=== PATIENT | male | born 1940 | race Caucasian/White ===

== ENCOUNTER 2025-03-12 21:01 | Emergency (ER) | payer MEDICARE, BC, SELFPAY ==
--- NOTE | 2025-03-12 | ECG_ITS ---
Test Reason : FALL Blood Pressure : */* mmHG Vent. Rate : 84 BPM Atrial Rate : * BPM P-R Int : * ms QRS Dur : 70 ms QT Int : 356 ms P-R-T Axes : * -27 14 degrees QTcB Int : 420 ms Atrial fibrillation Inferior infarct , age undetermined Abnormal ECG No previous ECGs available Referred By: Generic ED Physician Electronically Signed By: JUSTUS MOSLEY MD
--- NOTE | ~2025-03-12 | CT_ITS ---
CLINICAL HISTORY: fall, headstrike CT cervical spine without contrast Comparison: None provided Findings: Slight convex right curvature. Straightening of cervical lordosis. Moderate lower cervical disc disease. [id number] foraminal stenoses throughout the cervical spine. Narrow AP diameter of the cervical canal averaging 11 mm. This can be associated with congenital spinal stenosis. [id number]-[id number] multilevel foraminal stenosis. Most significant at the left C2-C5 levels. No acute fractures or dislocations. No acute findings on limited view of the intracranial contents. Enlarged heterogeneous thyroid. No consolidation or effusion at the lung apices. IMPRESSION: 1. Cervical degenerative spondylosis. No acute fracture. 2. Heterogeneous goiter. Further follow-up can be based on clinical assessment. This document has been electronically signed by: Yfn Gerber MD on 03/12/2025 22:47:05
--- NOTE | ~2025-03-12 | CT_ITS ---
CLINICAL HISTORY: fall, headstrike on thinners CT head without contrast Comparison: None provided Findings: No intra-axial mass, midline shift, hydrocephalus, or acute hemorrhage. Extensive atrophy like change. The visualized paranasal sinuses and mastoid air cells are normal. The orbits are within normal limits. There is no acute fracture. IMPRESSION: 1. No acute intracranial findings. This document has been electronically signed by: Yfn Gerber MD on 03/12/2025 22:44:41
[2025-03-12 21:12] VITALS: BP 148/96; BP 165/106; PULSE 102; PULSE 82; RESP 18; TEMP 36.7; O2SAT 97; O2SAT 98; BMI 24.9
[2025-03-12 21:16] VITALS: BP 165/106; PULSE 102; RESP 18; TEMP 36.7; O2SAT 97
--- NOTE | 2025-03-12 21:23 | PC.NURSE ---
pt biba from home, had some wine tonight had a mechanical trip and fall at home. fall witnessed by , no LOC or head strike, + thinners. Hx of dementia, son in charge of medical decisions per EMS. 2/10 pain in L knee, minor abrasion 1 x 1 .
[2025-03-12 21:33] LABS: Hematocrit 42.0 % (42.0-52.0); Hemoglobin 12.9 g/dl (14.0-18.0); Imm Gran Abs Auto 0.01 X10*3/uL (0.00-0.03); Imm Gran Pct Auto 0.2 % (0.0-0.4); Mean Corpuscular HGB Conc 30.7 g/dl (31.0-36.0); Mean Corpuscular Hemoglobin 23.4 pg (27.0-33.0); Mean Corpuscular Volume 76.1 fL (80.0-98.0); NRBC Abs Auto 0.000 X10*3/uL (0.0-0.012); NRBC Pct Auto 0.0 /100WBC (0.0-0.2); Red Blood Count 5.52 X10*6/uL (4.60-5.80); SCAN SMEAR FLAG 1
[2025-03-12 21:34] LABS: Lymphocytes Absolute Auto 1.5 X10*3/uL (1.2-4.9); PLT CLUMP 1
[2025-03-12 21:39] LABS: MANUAL DIFF FLAG SCAN; PLT ABN DIST 1
[2025-03-12 21:41] LABS: INTERNATIONAL NORM RATIO 1.4 (0.9-1.1); Prothrombin Time 16.6 SEC (11.2-13.5)
[2025-03-12 21:47] LABS: Alanine Aminotransferase 24 U/L (0-40); Albumin Level 3.7 g/dL (3.5-5.0); Alkaline Phosphatase 72 U/L (39-117); Anion Gap 9 (12-20); Aspartate Amino Transferase 20 U/L (5-37); Blood Urea Nitrogen 12 mg/dL (9-16); Calcium 8.4 mg/dL (8.4-10.2); Carbon Dioxide 26 mmol/L (22-29); Chloride 108 mmol/L (96-108); Creatinine Clr Calc Pharmacy 55.4; Estimated Glomerular Filt Rate > 60; Potassium 4.4 mmol/L (3.3-5.1); Sodium 139 mmol/L (135-145); Total Protein 6.6 g/dL (6.5-8.0)
[2025-03-12 21:54] LABS: Troponin-I High Sensitivity 5.5 ng/L (<3.5-35.0)
[2025-03-12 22:00] VITALS: BP 133/83; PULSE 73; TEMP 36.5; O2SAT 97
[2025-03-12 22:21] LABS: Platelet Count 154 X10*3/uL (160-400); White Blood Count 6.5 X10*3/uL (4.8-10.8)
--- NOTE | 2025-03-12 23:30 | ED_ITS ---
HPI - Fall General Chief Complaint: Fall Stated Complaint: fall, +thinners, hx of afib & dementia Time Seen by Provider: 03/12/25 21:18 Source: patient, family, EMS, RN notes reviewed and old records reviewed Mode of arrival: EMS Limitations: other (dementia) History of Present Illness ED Provider: Dr. Ludmila Morgan HPI Narrative: 84-year-old male with a history of dementia and atrial fibrillation on Eliquis presenting after a fall that occurred at home immediately prior to arrival. Patient reports that he was drinking wine and fell onto the carpet, hitting his head on the ground. No reported LOC. Patient unable to stand up after the fall though. He has an abrasion on his left knee and pain overlying the left middle finger but otherwise denies pain. Able to freely move his legs on the stretcher without pain. He is unable to provide much history. Related Data Allergies Allergy/AdvReac Type Severity Reaction Status Date / Time No Known Allergies Allergy Verified 03/12/25 21:14 Review of Systems 2 Review of Systems: as per HPI, full review of systems performed and negative but for the above mentioned pertinent positives and negatives. [facility] Social History Social History Smoked in Last 30 Days: No Advance Directives: No Advance Directives Information Provided: Yes Physical Exam 2 Exam: Exam: GENERAL: Chronically ill-appearing, conversant, no acute distress. SKIN: Normal skin color for ethnicity, warm, dry, no rashes noted, superficial abrasion overlying the left knee cap. HEENT: Normocephalic, atraumatic, red wine staining his crown, no stridor, posterior oropharynx nonerythematous, EOMI. NECK: Soft, supple, full ROM, midline structures nontender, no step-offs, no deformities, no lymphadenopathy. CHEST: Heart regular rate and rhythm, no murmurs, symmetric chest rise and fall. PULMONARY: Clear to auscultation bilaterally, no labored breathing, no wheezes/rhales/ rhonchi. ABDOMINAL: Soft, nondistended, nontender, positive bowel sounds in all quadrants. : Deferred. MUSCULOSKELETAL: Normal tone, full range of motion, no deformities, no peripheral edema, TTP over the left third middle phalanx, no ecchymosis/deformity, good cap refill. NEURO: Alert and oriented to person, CN II through XII intact, no focal neurologic deficits. PSYCHIATRIC: Flat affect, fluid speech, appropriate demeanor. Vital Signs: Vital Signs: Last Vital Signs Temp 98.6 F 03/13/25 00:03 Pulse 83 03/13/25 00:03 Resp 18 03/13/25 00:03 BP 130/84 03/13/25 00:03 Pulse Ox 98 03/13/25 00:03 O2 Del Method Room Air 03/13/25 00:03 BMI result Body Mass Index 24.9 Medical Decision Making Medical Decision Making [facility] Narrative: Patient presents today with chief complaint of trauma after a fall. Different diagnosis on this patient includes intracranial hemorrhage, skull fracture, neck injury including fracture or spinal cord pathology. Other diagnoses considered would include chest or abdominal trauma as well as long bone fractures. Based on my physical exam, the ordered imaging modalities are indicated. The patient specifically does not show any signs of central cord syndrome as evidenced by equal strength in the upper extremities with normal two-point discrimination. Sensation is not altered. GCS is appropriate. Patient is neurovascularly intact. There are no signs of vascular emergency. No signs of shock. No respiratory distress. Patient's son who is now at bedside reports that the patient drinks non alcoholic wine. The patient does not know about it. He thinks he is drinking regular wine. That being said, he has no sign of intoxication today. He is at his baseline confusion but understands that he is in the hospital after a fall. Workup today has been reassuring with no evidence of traumatic injury. He does have a small abrasion overlying the left knee cap. Otherwise he has full active range of motion of all of his joints and is able to stand and walk with a steady gait. Tolerating oral intake. Using shared decision making, plan for discharge home to follow-up with primary care and/or specialist. Patient understands and agrees with plan for discharge. Discharged home in stable condition. Differential Diagnosis Differential Diagnoses: The differential diagnosis associated with the presentation includes (as above) Admission/Observation Consideration of admission/observation: Escalation of care including admission/observation considered Lab Data MDM Lab Attestation statement: I reviewed the patient's lab results. 03/12/25 21:28 03/12/25 21:28 Labs: Lab Results 03/12/25 Range/Units 21:28 WBC 6.5 (4.8-10.8) X10*3/uL RBC 5.52 (4.60-5.80) X10*6/uL Hgb 12.9 L (14.0-18.0) g/dl Hct 42.0 (42.0-52.0) % MCV 76.1 L (80.0-98.0) fL MCH 23.4 L (27.0-33.0) pg MCHC 30.7 L (31.0-36.0) g/dl RDW 20.9 H (11.0-16.0) % Plt Count 154 L (160-400) X10*3/uL MPV Not Reportable Immature Gran % (Auto) 0.2 (0.0-0.4) % Neut % (Auto) 52.3 (45-73) % Lymph % (Auto) 22.9 (20-40) % Gray % (Auto) 11.3 H (2-11) % Eos % (Auto) 11.8 H (0-4) % Baso % (Auto) 1.5 (0-2) % Lymph # (Auto) 1.5 (1.2-4.9) X10*3/uL Gray # (Auto) 0.7 (0.1-1.2) X10*3/uL Eos # (Auto) 0.8 H (0.0-0.4) X10*3/uL Baso # (Auto) 0.1 (0.0-0.2) X10*3/uL Abs Immat Gran (auto) 0.01 (0.00-0.03) X10*3/uL Absolute Neuts (auto) 3.4 (2.0-8.3) x10*3/uL Absolute Nucleated RBC 0.000 (0.0-0.012) X10*3/uL Nucleated RBC % (auto) 0.0 (0.0-0.2) /100WBC Smear Tech's Comments VERIFIED PT 16.6 H (11.2-13.5) SEC INR 1.4 H (0.9-1.1) Sodium 139 (135-145) mmol/L Potassium 4.4 (3.3-5.1) mmol/L Chloride 108 (96-108) mmol/L Carbon Dioxide 26 (22-29) mmol/L Anion Gap 9 L (12-20) BUN 12 (9-16) mg/dL Creatinine 1.05 (0.5-1.4) mg/dL Estim Creat Clear Calc 55.4 Estimated GFR > 60 Random Glucose 105 (60-115) mg/dL Calcium 8.4 (8.4-10.2) mg/dL Total Bilirubin 0.6 (0.0-1.0) mg/dL AST 20 (5-37) U/L ALT 24 (0-40) U/L Alkaline Phosphatase 72 (39-117) U/L Troponin I High Sens 5.5 (<3.5-35.0) ng/L Total Protein 6.6 (6.5-8.0) g/dL Albumin 3.7 (3.5-5.0) g/dL Radiology Impression Discussion of test interpretation with radiology: I have reviewed the radiologist's reading. Independent Historian Clinical information obtained from an independent historian. History obtained from or confirmed by: EMS and Other (son) External Record Review External record reviewed: Inpatient record Chronic Conditions Patient?s care impacted by: Other (dementia, Afib) Discharge Plan Discharge Clinical Impression: Fall from ground level, On continuous oral anticoagulation, Abrasion, left knee, initial encounter, Contusion of left middle finger without damage to nail Patient Disposition: Home, Self-Care Instructions: Fall Prevention for Older Adults (ED), Head Injury (ED), Abrasion (ED) Additional Instructions: Thank you for choosing [facility]'s Emergency Department for your care today. Your workup today is consistent with a concussion after a fall. Thankfully at this time there is no evidence of an acute emergent process that requires admission to the hospital or continued ED observation, and it is safe to discharge you home. A concussion is a bruise to your brain which may cause nausea, vomiting, headache, and difficulty concentrating/focusing. Similar to any other bruising, you must rest the injured area to prevent recurrent symptoms, reinjury, or other complications. In order to rest your brain, please avoid use of electronics such as cell phones, iPads, or TVs. Please avoid highly complex mental tasks/projects that require intense focus or concentration, and please avoid strenuous physical activity. Once your symptoms have resolved, you may slowly increase your activity level. If symptoms return please discontinue the activity which caused the recurrence of symptoms for 48 hours, before again attempting the same activity. You may not participate in any activities that are a high risk for recurrent head injury until you've returned to your baseline activity level without recurrence of your symptoms, plus one additional week. Take Tylenol for headache or pain as needed. Keep your finger splint clean and dry. Take it off if you need to shower or wash her hands. Reapply tape. Do not make it too tight to cut off circulation. Please follow up with your primary care physician for re-evaluation, additional management of your symptoms, return to activity clearance, and continued preventative care. If you do not have a primary care physician, please call the [facility] at [phone] to establish a new primary care physician. While waiting to establish your new primary care physician, you can call our [facility] at [phone] for non-emergency needs. Please return to the emergency department if you develop a severe or sudden change in your symptoms, a fever over 100.4 that does not improve with Tylenol or Ibuprofen, recurrent vomiting, or any other new or worsening symptoms or concerns. Interventions: ED Discharge Assessment Last Done: 03/13/25 00:03 Discharge Date/Time: 03/13/25 00:04 Print Language: Nepali
[2025-03-13 00:03] VITALS: BP 130/84; PULSE 83; RESP 18; TEMP 37; O2SAT 98
--- OUTSIDE RECORDS SUMMARY | 2025-03-13 02:38 | XMS_ITS | Clinical Summary ---
Author Organization [facility] Address [address] [place] [address] Phone Care Team Providers Care Outboard Motorboat Operator Name Role Phone Jj Burdick MD Primary Care Provider [phone] Jj Burdick MD Unavailable Allergies Active Allergy Reactions Criticality Noted Date Comments Grass Pollen 02/20/2019 Rzwrszut-Erslanxlvk-Klpk-Hc 03/19/20 Other reaction(s): urinary hesitancy Simvastatin 03/19/2020 Other reaction(s): myalgias Medications apixaban (ELIQUIS) 5 mg tabletIndication s:Longstanding persistent atrial fibrillation Take 1 tablet (5 mg total) by mouth 2 (two) times a day. 56 tablet 08/04/19 25 Active doxazosin (CARDURA) 4 MG tabletIndication s:Benign prostatic hyperplasia, unspecified whether lower urinary tract symptoms present Take 1 tablet (4 mg total) by mouth daily. 30 tablet 08/04/19 25 Active finasteride (PROSCAR) 5 mg tabletIndication s:Benign prostatic hyperplasia, unspecified whether lower urinary tract symptoms present Take 1 tablet (5 mg total) by mouth daily. 30 tablet 08/04/19 25 Active metoprolol tartrate (LOPRESSOR) 50 MG tabletIndication s:Primary hypertension Take 1 tablet (50 mg total) by mouth 2 (two) times a day. 56 tablet 08/04/19 25 Active pantoprazole (PROTONIX) 40 MG tabletIndication s:Gastroesophage al reflux disease, unspecified whether esophagitis present Take 1 tablet (40 mg total) by mouth daily. 30 tablet 08/04/19 25 Active albuterol 90 mcg/actuation inhaler Inhale 2 puffs into the lungs every 6 (six) hours as needed for wheezing. 8 g 1 02/17/20 25 Active assist device for inhaler Kasey 1 each by See Administration Instructions route once for 1 dose. 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 He is already being treated with beta-blockers for atrial fibrillation and denies any symptoms of hyperthyroidism. Plan is to continue beta-blockers and to monitor his TSH every 6 months. Annual physical exam 07/09/2023 IFG (impaired fasting glucose) 07/09/2023 Assessment & Plan (07/09/2023 2:57 PM EDT): Patient has history of impaired fasting glucose and is due to have his A1c rechecked at this time. Neurocognitive disorder 07/23/2022 Assessment & Plan (08/16/2023 12:02 PM EDT): Patient had a neuropsych evaluation in 2021 that showed that he had Alzheimer's type neurocognitive disorder. He does have family members who live close to him and patient has recently sold his home on [address] and moved to [place] as per our last visit. Patient is confused about who drove with him to the appointment today as he mention it was his Agnes who also used to be a patient of mine. Agnes has been for over 2 years so I am not sure who is here with him but patient states that his friend will be able to drive him back. Assessment & Plan (07/09/2023 2:57 PM EDT): Patient had neuropsych evaluation on April 17, 2021. Primary impression was of emerging neurocognitive disorder probably Alzheimer's type. 1 year repeat testing was recommended. It was recommended that he start Aricept and/or Namenda but patient was not in favor of taking this medication. Since that time, patient's memory has not declined to any appreciable measure. He continues to live independently and gets his medications delivered via pill pack. He is able to do his ADLs independently and does not require any home services. He does have support of his son Bronson and is able to enjoy his hobbies. Assessment & Plan (07/23/2022 4:35 PM EDT): Patient had neuropsych evaluation on April 17, 2021. Primary impression was of emerging neurocognitive disorder probably Alzheimer's type. 1 year repeat testing was recommended. It was recommended that he start Aricept and/or Namenda but patient was not in favor of taking this medication. Since that time, patient's memory has not declined to any appreciable measure. He continues to live independently and gets his medications delivered via pill pack. He is able to do his ADLs independently and does not require any home services. He does have support of his son Bronson and is able to enjoy his hobbies. Longstanding persistent atrial fibrillation 05/2021 Assessment & Plan (08/16/2023 11:59 AM EDT): Patient is on Eliquis for history of persistent atrial fibrillation. There are no changes in his medication and patient denies any chest pain. Assessment & Plan (07/09/2023 2:56 PM EDT): Patient is on Eliquis for history of persistent atrial fibrillation. There are no changes in his medication and patient denies any chest pain. Assessment & Plan (07/26/2022 12:58 AM EDT): Patient is on Eliquis for history of persistent atrial fibrillation. He has not established with a ms sql dba since leaving [facility]. I placed a referral today for patient to see a local ms sql dba. There are no changes in his medication and patient denies any chest pain. He is able to golf with his son without experiencing lightheadedness or shortness of breath with exertion. Amblyopia 07/30/2014 Overview (03/12/2015): Amblyopia; Left Arthritis 07/30/2014 Overview (03/12/2015): Arthritis; Right; 07/30/14 Right Shoulder [facility] Benign prostatic hyperplasia 12/22/2010 Overview (05/26/2014): BPH Assessment & Plan (07/09/2023 2:58 PM EDT): Patient has history of BPH for which he is taking finasteride and doxazosin. Assessment & Plan (07/26/2022 12:59 AM EDT): Patient is taking doxazosin and finasteride for symptoms of BPH. He denies waking up excessively at night to use the bathroom. Gastroesophageal reflux disease 12/22/2010 Overview (05/26/2014): Gastroesophageal reflux disease Insomnia 12/22/2010 Overview (05/26/2014): Insomnia Uncoded amblyopia os 07/21/2010 Overview (05/26/2014): amblyopia os Hypertensive disorder 07/21/2010 Overview (03/06/2022): Assessment & Plan (07/09/2023 2:56 PM EDT): Toño López has hypertension and he is taking the above medication as directed without any side effects. his blood pressure is within normal limits and stable. he will follow up as directed. Hypercholesterolemia 07/21/2010 Overview (05/26/2014): Hypercholesterolemia Assessment & Plan (07/09/2023 2:57 PM EDT): Patient has history of hypercholesterolemia and is due to have his lipid profile rechecked at this time. Celiac disease 07/21/2010 Overview (05/26/2014): Celiac disease Encounters Date Type Department Care Team Description 02/16/2025 9:00 AM EST Office Visit [facility] [address] [place] [address] Jeremy Breen MD Viral URI with cough (Primary Dx); Wheezing 02/16/2025 Telephone [facility] [address] [place] [address] Jj Burdick MD lab orders 02/13/2025 Nurse Triage [facility] [address] [place] [address] Jj Burdick MD Triage (Sore throat, wheezing for 3 days); Wheezing from Last 3 Months Immunizations Immunization Administration Dates Next Due COVID-19 (Pre-01/25) Pfizer Vaccine, mRNA, PF 05/31/2020,05/09/2020 INFLUENZA, SPLIT VIRUS, TRIV ALENT W/ PRESERVATIVE IM 02/20/2019,01/17/2018,03/23/2017,2015 Pneumococcal conjugate PCV13 03/24/2017 Td (adult),2 Lf Tetanus Toxo id, PF, Adsorbed 03/25/2018 Tdap 07/02/2020 Family History Medical History Relation Comments Glaucoma Neg Hx Macular degeneration Neg Hx Social History Tobacco Use Types Packs/Day Years Used Date Smoking Tobacco: Some Days Cigars Smokeless Tobacco: Never Alcohol Use Standard Drinks/Week Comments Yes 0 (1 standard drink = 0.6 oz pur e alcohol) Child or Family Care Answer Date Record ed Do you have problems with on e of the following making it difficult for you to work, study, or receive health care? No 08/03/2024 Education Answer Date Recorded Are you interested in more education? Not on nora e 07/30/2022 Are you concerned about learning? Not on file 07/30/2022 No 07/30/2022 No 07/30/2022 Food Answer Date Recorded Within the past 6 months we worried whether our food would run out before we got money to buy more. Never True 08/03/2024 Within the past 6 months the food we bought just didn't last and we didn't have enough money to get more. Never True Residential Stability Answer Date Recor ded What is your housing situation today? I have alexx sing 08/03/2024 How many times have you move d in the past 12 months? Zero (I did not move) 08/03/2024 Paying for Meds Answer Date Recorded Do you have trouble paying for medicines? No 08/03/2024 Paying Utility Bills Answer Date Record ed Do you have trouble paying your heating or elect ricity bill? No 08/03/2024 Transportation Answer Date Recorded Has the lack of transportati on kept you from medical appointments or from getting medications? No 08/03/2024 Digital Access Answer Date Recorded Yes 08/03/2024 No 08/03/2024 Do you have reliable internet access at home? No 08/03/2024 Do you have a device (e.g., phone, tablet, computer) with a working camera? I choose not to answer 08/03/2024 Sex and Gender Information Value Date Recorded Sex Assigned at Not on file Legal Sex Male 7:58 PM EST Gender Identity Not on file Sexual Orientation Not on file Last Filed Vital Signs Vital Sign Reading Time Taken Comments Blood Pressure 118/72 02/16/2025 9:05 AM EST Pulse 84 02/16/2025 9:05 AM EST Temperature 36.6 C (97.8 F) 02/16/2025 9:05 AM EST Respiratory Rate - - Oxygen Saturation 98% 02/16/2025 9:05 AM EST Inhaled Oxygen Concentration - - Weight 81.2 kg (179 lb) 02/16/2025 9:05 AM EST Height 182.9 cm (6') 08/03/2024 2:38 PM EDT Body Mass Index 24.28 08/03/2024 2:38 PM EDT Plan of Treatment Health Maintenance Due Date Last Done Comments DEPRESSION SCREENING 1952 ZOSTER VACCINES (1 of 2) 1988 RSV VACCINE (1 - 1-dose 75+ series) 2013 PNEUMOCOCCAL VACCINES (50+ years) (2 of 2 - PPSV23, PCV20, or PCV21) 05/19/2017 03/24/2017 CREATININE LEVEL 07/26/2024 07/27/2023, , 12/22/2010 INFLUENZA VACCINE (#1) 2024 9, 01/17/2018, 03/23/2017, Additional history exists COVID-19 VACCINE ( - season) 2024 05/31/2020, 05/09/2020 Adult Td,Tdap Booster 07/02/2030 07/02/2020, 018 HEPATITIS A VACCINES Aged Out No long er eligible based on patient's age to complete this topic HIB VACCINES Aged Out No longer eligi ble based on patient's age to complete this topic MENINGOCOCCAL VACCINES (ACWY) Aged Out No longer eligible based on patient's age to complete this topic MENINGOCOCCAL VACCINES (B) Aged Out N o longer eligible based on patient's age to complete this topic Medical Devices Not on file Procedures Procedure Name Priority Date/Time Associated Diagnosis Comments POCT SARS-COV-2, INFLUENZA A/B, RSV, PCR Routine 02/16/2025 9:13 AM EST COMPREHENSIVE METABOLIC PANEL (CMP) Routine 07/27/2023 10:03 AM EDT Annual physical exam Primary hypertension from Last 3 Months or Most Recently Relevant to Health Maintenance Results * POCT SARS-CoV-2, Influenza A/B, RSV, PCR (02/16/2025 9:13 AM EST) SARS-Cov-2 PCR Negative Negative 02/16/2025 9:50 AM EST [facility] Influenza A Negative Negative 02/16/2025 9:50 AM EST [facility] Influenza B Negative Negative 02/16/2025 9:50 AM EST [facility] RSV PCR Negative Negative 02/16/2025 9:50 AM EST [facility] Swab (Anterior Nares) 02/16/2025 9:13 AM EST 02/16/2025 9:50 AM EST Jeremy Breen MD LAB POCT DOCKED DEVICE UNSOLI CTED RESULTS Final Result [address] [place] [address], [facility] [phone] * (ABNORMAL) Comprehensive metabolic panel (07/27/2023 10:03 AM EDT) SODIUM 139 133 - 146 mmol/L [facility] POTASSIUM 4.6 3.3 - 5.1 mmol/L [facility] CHLORIDE 106 96 - 108 mmol/L [facility] CO2 24 21 - 35 mmol/L [facility] BUN 16 6 - 19 mg/dL [facility] CREATININE 1.00 0.5 - 1.5 mg/dL [facility] GLUCOSE 103(H) 70 - 99 mg/dL [facility] ALBUMIN 4.0 3.9 - 4.8 g/dL [facility] TOTAL PROTEIN 6.7 6.5 - 8.0 g/dL [facility] CALCIUM 8.8 8.4 - 10.3 mg/dL [facility] ALKALINE PHOSPHATASE 62 39 - 117 U/L [facility] TOTAL BILIRUBIN 0.5 0.0 - 1.2 mg/dL [facility] AST 24 0 - 37 U/L [facility] ALT 20 0 - 40 U/L [facility] GLOBULIN 2.7 1 - 4.8 g/dL [facility] EGFR 74 >59 mL/min/1.7 3m2 [facility] Comment:Estimated glomerular filtration rate calculated using the CKD-EPI refit equation. ANION GAP 14 10 - 20 mmol/L [facility] Blood 07/27/2023 10:0 3 AM EDT 07/27/2023 10:06 AM EDT us Jj Burdick MD LAB BLOOD BKR ORDERABLES Final R esult [facility] [address] [place] [address] from Last 3 Months or Most Recently Relevant to Health Maintenance Insurance MEDICARE PART A & B [id number] [place] [address] MEDICARE PART A & B [facility] [place] MEDICARE PART A [place] [address] [place] [id number] MEDICARE PART A & B [facility] [place] MEDICARE PART A & B [facility] [place] MEDICARE PART A & B [facility] [place] MEDICARE PART A & B [facility] [place] MEDICARE PART A & B [facility] [place] MEDICARE PART A & B [facility] [place] MEDICARE PART A & B [facility] [place] Advance Directives For more information, please contact: [phone] (9AM - 5PM [facility], Wednesday-Wednesday) Documents on File Type Date Recorded Patient Teaching Assistant Expl anation Healthcare Proxy 03/06/2022 Care Teams Outboard Motorboat Operator Relationship Specialty Start Date End Date Jj Burdick MD [address] [facility], [facility] [address] [place] [address] PCP - General Family Medicine 09/20/17 Jj Burdick MD [address] [place] [address], [facility] [address] [place] [address] Insurance Assigned Provider 07/10/23 Additional Source Comments The information contained in this document represents components of the legal health record. It is not the complete legal health record.[facility]
--- OUTSIDE RECORDS SUMMARY | 2025-03-13 02:38 | XMS_ITS | Encounter Summary ---
Author Organization [facility] Address [address] [place] [address] [place] [address] Phone Care Team Providers Care Tongue Carrier Name Role Phone Jj Burdick MD Primary Care Provider [phone] Jj Burdick MD Unavailable Reason for Visit * Reason Onset Date Comments lab orders 02/16/2025 Encounter Details Date Type Department Care Team (Late st Contact Info) Description 02/16/2025 Telephone [facility] [address] [place] [address] Jj Burdick MD [address] [place] [address] [address] [place] [address] [email or web address] lab orders Social History Tobacco Use Types Packs/Day Years [...] on file Sexual Orientation Not on file documented as of this encounter Progress Notes * Kay Stack - 02/19/2025 8:12 AM EST LM lab orders are done * Jj Burdick MD - 02/16/2025 7:59 PM EST Orders for lab tests have been signed. * Nancy Ponce - 02/16/2025 9:39 AM EST Pt is requesting some routine lab orders - looks like previous orders made for him have been discontinued. Please contact when orders have been placed. Thank you! documented in this encounter Plan of Treatment Scheduled Orders Name Type Priority Associated Diagnoses Orde r Schedule Lipid Panel Lab Routine Hypercholesterolemia Expected: 02/15/2026 (Approximate), Expires: 05/18/2026 Comprehensive Metabolic Panel (CMP) Lab Routine Longstanding persistent atrial fibrillation Expected: 02/15/2026 (Approximate), Expires: 05/18/2026 Thyroid Stimulating Hormone (TSH) Lab Routine Hyperthyroidism Expected: 02/15/2026 (Approximate), Expires: 05/18/2026 Hemoglobin A1c Lab Routine IFG (impaired fasting glucose) Expected: 02/16/2025, Expires: 02/16/2026 CBC and Differential Lab Routine Annual physical exam Primary hypertension Expected: 02/16/2025, Expires: 02/16/2026 documented as of this encounter Visit Diagnoses Diagnosis Hypercholesterolemia Pure hypercholesterolemia Longstanding persistent atrial fibrillation Hyperthyroidism Thyrotoxicosis without mention of goiter or other cause, without mention of thyrotoxic crisis or storm IFG (impaired fasting glucose) Annual physical exam Routine general medical examination at a health care facility Primary hypertension Unspecified essential hypertension documented in this encounter Additional Health Concerns Infection Onset Date Last Indicated Resolved Time Resp-Risk 02/16/2025 02/16/2025 02/27/2025 7:07 PM EST documented as of this encounter Care Teams Tongue Carrier Relationship Specialty Start Date End Date Jj Burdick MD [address] [address] [email or web address] PCP - General Family Medicine 09/20/17 Jj Burdick MD 234 [facility], [facility] [address] [place] [address] Insurance Assigned Provider 07/10/23 documented as of this encounter Additional Source Comments The information contained in this document represents components of the legal health record. It is not the complete legal health record.[facility]
== END 2025-03-13 00:04 | disposition home or self-care (01) ==
PROVIDERS: Emergency Provider Emergency Medicine; PCP Family Medicine
DX: S80.212A Abrasion, left knee, initial encounter (principal); S60.032A Contusion of left middle finger without damage to nail, initial encounter; S09.90XA Unspecified injury of head, initial encounter; W18.30XA Fall on same level, unspecified, initial encounter; Y93.9 Activity, unspecified; Y92.9 Unspecified place or not applicable; I48.91 Unspecified atrial fibrillation; Z79.01 Long term (current) use of anticoagulants
CPT/HCPCS: 36415; 70450; 72125; 80053; 84484; 85025; 85610; 93005; 99284

== ENCOUNTER → 2025-03-12 21:14 | Outpatient (BNV) | payer MEDICARE, BC, SELFPAY | PROVIDERS: Emergency Provider Emergency Medicine; PCP Family Medicine; Visit Provider Internal Medicine Cardiovascular Disease | DX: I48.91 Unspecified atrial fibrillation (principal) | CPT/HCPCS: 93010 ==

== ENCOUNTER → 2025-03-12 21:23 | Outpatient (BNV) | payer MEDICARE, BC, SELFPAY | PROVIDERS: Emergency Provider Emergency Medicine; Visit Provider Radiology Diagnostic Radiology | DX: M47.812 Spondylosis without myelopathy or radiculopathy, cervical region (principal); E04.9 Nontoxic goiter, unspecified; S09.90XA Unspecified injury of head, initial encounter; Z04.3 Encounter for examination and observation following other accident | CPT/HCPCS: 70450; 72125 ==